=== PATIENT | male | born 1975 | race Two or more races ===

== ENCOUNTER 2024-04-16 08:17 | Emergency (ER) | payer BC ==
[~2024-04-16] VITALS: Ht 193 cm; Wt 99.8 kg
[2024-04-16] MEDS ORDERED: LISINOPRIL 10 MG TABLET ONE (08:54)
[2024-04-16 09:01] LABS: BASOPHILS % (AUTO) 0.5 % (0.0-2.0); EOSINOPHILS # (AUTO) 0.1 K/uL (0.0-0.7); EOSINOPHILS % (AUTO) 1.8 % (0.0-7.0); HEMOGLOBIN 14.3 g/dL (12.5-16.3); LYMPHOCYTES # (AUTO) 1.4 K/uL (0.8-4.8); LYMPHOCYTES % (AUTO) 22.1 % (20.5-51.5); MEAN CORPUSCULAR HEMOGLOBIN 31.9 uug (23.8-33.4); MEAN CORPUSCULAR HGB CONC 35 g/dL (32.5-36.3); MONOCYTES # (AUTO) 0.3 K/uL (0.1-1.30); MONOCYTES % (AUTO) 5.2 % (0.0-11.0); NEUTROPHILS # (AUTO) 4.5 K/uL (1.8-8.9); NEUTROPHILS % (AUTO) 70.4 % (38.5-71.5); PLATELET COUNT (AUTO) 256 K/uL (152-348); RED CELL DISTRIBUTION WIDTH 12.6 % (12.1-16.2); WHITE BLOOD COUNT (AUTO) 6.5 K/uL (3.6-10.2)
[2024-04-16] MEDS: LISINOPRIL 10 MG TABLET PO ONE (09:13)
[2024-04-16 09:14] LABS: DIFFERENTIAL COMMENT 1
[2024-04-16 09:39] LABS: *BILIRUBIN,URIN NEGATIVE (NEGATIVE); *BLOOD, URINE NEGATIVE (NEGATIVE); *CLARITY,URINE CLEAR (CLEAR); *COLOR,URINE YELLOW (YELLOW); *KETONES,URINE NEGATIVE (NEGATIVE); *PROTEIN,URINE NEGATIVE (NEGATIVE); *UROBILINOGEN,URINE 0.2 E.U./dl (NORMAL); LEUKOCYTE ESTERASE ,URINE NEGATIVE (NEGATIVE); NITRITE, URINE NEGATIVE (NEGATIVE); UGLUCOSE NEGATIVE (NEGATIVE)
[2024-04-16 09:47] LABS: CALCIUM 9.3 mg/dL (8.5-10.1); CREATININE 0.8 mg/dL (0.6-1.3); POTASSIUM 4.2 mmol/L (3.5-5.1)
[2024-04-16] MEDS ORDERED: LISI20TA30 PO (10:09)
[2024-04-16 10:20] VITALS: BP 140/88; O2SAT 100
[2024-04-16 11:05] LABS: MAGNESIUM 2.2 mg/dL (1.8-2.4)
== END 2024-04-16 10:21 | disposition home or self-care (01) ==
LOC: ER 08:17
DX: I11.9 Hypertensive heart disease without heart failure (principal); R51.9 Headache, unspecified; E78.5 Hyperlipidemia, unspecified
CPT/HCPCS: 36415; 70450; 83735; 85025; A4606; A4663